=== PATIENT | male | born 1985 | race Two or more races ===

== ENCOUNTER 2016-12-09 20:59 | Emergency (ER) | payer MEDICAID ==
--- NOTE | ~2016-12-09 | ER ---
PATIENT'S NAME: VERN LIM [facility] AGE: 30 Y [address] ROOM: [place] [id number] LOCATION: [facility] ADMIT DATE: 12/09/2016 ER/Outpatient Report DISCHARGE DATE: 12/09/2016 FAMILY PHYSICIAN: PHYSICIAN, NO ATTENDING PHYSICIAN: Thomas Brice Admission date and time documented on the medical record. I saw the patient at 2150 hours. CHIEF COMPLAINT: Cough and congestion. HISTORY OF PRESENT ILLNESS: The patient is a 30-year-old male, who has had a 4-day history of coarse cough with some wheezing and congestion. Pain with deep cough. Otherwise, no chest pain. He does have some mild shortness of breath. No nausea, vomiting, diarrhea, or abdominal pain. No headache, eyes, ears, nose, throat, neck, or spine pain. No lightheadedness, dizziness, syncope, or near syncope. No fall or trauma. No joint or muscle swelling, redness, or pain. No skin eruptions or rash. No neuro changes or endocrine problems. He does have some depression. HOME MEDICATIONS: See attached medication list. ALLERGIES: NONE. SOCIAL HISTORY: Nonsmoker. Smokes marijuana. No tobacco. SIGNIFICANT PAST MEDICAL HISTORY: Marijuana abuse, depression, and bronchitis. OPERATIONS: None. ROS: All systems reviewed by me are negative with exception of those discussed in the history of present illness. PHYSICAL EXAMINATION: VITAL SIGNS: Temperature 97.4, pulse 79, respirations 16, blood pressure 139/87, O2 saturation on room air is 96%. HEAD: Normocephalic. PATIENT'S NAME: VERN LIM [facility] AGE: 30 Y [address] ROOM: [place] [address] LOCATION: [facility] ADMIT DATE: 12/09/2016 ER/Outpatient Report DISCHARGE DATE: 12/09/2016 FAMILY PHYSICIAN: PHYSICIAN, NO ATTENDING PHYSICIAN: Thomas Brice EYES, EARS, NOSE, AND THROAT: Clear. Mucous membranes are moist. NECK: Negative. SPINE: Negative. LUNGS: Fairly good airflow. Some scattered rhonchi. Expiratory wheezing. No rales. HEART: Regular. Pulses are palpable. ABDOMEN: Soft, nontender. Good bowel tones. EXTREMITIES: Intact. NEUROVASCULAR: Intact. SKIN: Clear. IMPRESSION: Bronchitis. PLAN: The patient dismissed home. Observation. Activity as tolerated. Fluids and diet as tolerated. Z-Heber to take as directed. Albuterol oral inhaler 2 puffs 4 times and as needed. Follow up with personal physician as needed. Discussion ensued with the patient concerning my findings and recommendations, he understands. MD LANE ZUÑIGA/modl /[id number] d: 12/10/16211 t: 12/10/16 1809, OUTPATIENT REPORT
== END 2016-12-09 22:05 | disposition disaster alternative care site (69) ==
LOC: GMED 20:59
DX: J40 Bronchitis, not specified as acute or chronic (principal); F32.9 Major depressive disorder, single episode, unspecified; Z79.899 Other long term (current) drug therapy